=== PATIENT | male | born 1965 | race Caucasian/White ===

== ENCOUNTER 2018-04-03 13:04 | Emergency (ER) | END 2018-04-03 14:39 | disposition home or self-care (01) ==

== ENCOUNTER 2018-06-17 03:53 | Emergency (ER) | END 2018-06-17 06:11 | disposition home or self-care (01) ==

== ENCOUNTER 2018-06-21 03:05 | Emergency (ER) | END 2018-06-21 08:08 | disposition home or self-care (01) ==